=== PATIENT | male | born 1995 | race Caucasian/White ===

== ENCOUNTER 2017-09-12 19:36 | Emergency (ER) | payer SELFPAY ==
[~2017-09-12] VITALS: Ht 180.3 cm; Wt 161.5 kg
[~2017-09-12 19:36] MED LIST: ACHD5005 PO; AMOX500C2 PO; AZIT250T12; CEFU500T63 PO; HYDR-757 PO; HYDR1TAB PO; OXYC-12 PO; TRAM50TA2 PO
--- OUTSIDE RECORDS SUMMARY | 2017-09-12 19:46 | XMS REPORT | Continuity of Care Document ---
Author Author [facility] [place] Address Unknown Phone Unavailable Allergies Active Description Code Type Severity Reaction Onset Reported/Identified Relationship to Patient Clinical Status Yes clarithromycin [id number] Drug Allergy Mild N/A 01/20/2009 Yes Biaxin Drug Allergy 04/26/2011 Yes Biaxin Drug Allergy N/A N/A 04/26/2011 Medications There is no data. Problems Date Dx Coded Attending Type Code Diagnosis Diagnosed By 04/11/2011 BRIDGER DANIEL DO V03.89 MENINGOCOCCAL DX 04/11/2011 BRIDGER DANIEL DO V06.1 TDAP DX 04/11/2011 V03.89 MENINGOCOCCAL DX 04/11/2011 V06.1 TDAP DX 04/11/2011 V03.89 MENINGOCOCCAL DX 04/11/2011 V06.1 TDAP DX 04/26/2011 BRIDGER DANIEL DO V70.3 SPORTS/SCHOOL EXAM 04/26/2011 V70.3 SPORTS/SCHOOL EXAM 04/26/2011 V70.3 SPORTS/SCHOOL EXAM 09/02/2012 Ot 823.00 FX UPPER END TIBIA-CLOSE 09/02/2012 Ot 959.7 LOWER LEG INJURY NOS 09/02/2012 Ot E000.8 OTHER EXTERNAL CAUSE STATUS 09/02/2012 Ot E007.5 ACTIVITIES INVOLVING SOCCER 09/02/2012 Ot E849.4 ACCID IN RECREATION AREA 09/02/2012 Ot E886.0 FALL IN SPORTS 11/06/2012 BRIDGER DANIEL DO 780.2 SYNCOPE 11/06/2012 BRIDGER DANIEL DO 780.4 DIZZINESS AND VERTIGO 11/06/2012 780.2 Syncope 11/06/2012 780.4 Dizziness And Vertigo 11/06/2012 780.2 Syncope 11/06/2012 780.4 Dizziness And Vertigo 02/03/2013 V20.2 WELL CHILD 12/26/2013 LATONYA MARAVILLA MD Ot 462 ACUTE PHARYNGITIS 12/26/2013 TAIWO MD, LATONYA A Ot 784.2 SWELLING IN HEAD NECK 05/19/2014 GRGEORIO JAIN DO Ot 540.9 ACUTE APPENDICITIS NOS 05/19/2014 GREGORIO JAIN DO Ot V74.8 SCREEN-BACTERIAL DIS NEC 03/02/2016 ANGY BERMUDEZ Ot S60.031A CONTUSION OF RIGHT MIDDLE FINGER W/O DAM 03/02/2016 ANGY BERMUDEZ Ot W22.8XXA STRIKING AGAINST OR STRUCK BY OTHER OBJE 03/02/2016 ANGY BERMUDEZ Ot Y92.[address] 03/02/2016 ANGY BERMUDEZ Ot Y99.0 CIVILIAN ACTIVITY DONE FOR INCOME OR PAY 03/03/2016 ANGY BERMUDEZ Ot S60.031A CONTUSION OF RIGHT MIDDLE FINGER W/O DAM 03/03/2016 ANGY BERMUDEZ Ot W22.8XXA STRIKING AGAINST OR STRUCK BY OTHER OBJE 03/03/2016 ANGY BERMUDEZ Ot Y92.[address] 03/03/2016 ANGY BERMUDEZ Ot Y99.0 CIVILIAN ACTIVITY DONE FOR INCOME OR PAY 04/07/2016 ANGY BERMUDEZ Ot S60.031A CONTUSION OF RIGHT MIDDLE FINGER W/O DAM 04/07/2016 ANGY BERMUDEZ Ot W22.8XXA STRIKING AGAINST OR STRUCK BY OTHER OBJE 04/07/2016 ANGY BERMUDEZ Ot Y92.[address] 04/07/2016 ANGY BERMUDEZ Ot Y99.0 CIVILIAN ACTIVITY DONE FOR INCOME OR PAY 07/04/2017 DAYTON LANDON APRN Ot J40 BRONCHITIS, NOT SPECIFIED ACUTE OR CH 07/04/2017 DAYTON LANDON APRN Ot R07.89 OTHER CHEST PAIN 07/04/2017 DAYTON LANDON APRN Ot Z90.49 ACQUIRED ABSENCE OF OTHER SPECIFIED PART 07/11/2017 DAYTON LANDON APRN Ot J40 BRONCHITIS, NOT SPECIFIED ACUTE OR CH 07/11/2017 DAYTON LANDON APRN Ot R07.89 OTHER CHEST PAIN 07/11/2017 DAYTON LANDON APRN Ot Z90.49 ACQUIRED ABSENCE OF OTHER SPECIFIED PART Procedures Code Description [place] [address] ROUTINE VENIPUNCTURE 11/06/2012 87324 CMP 11/06/2012 98929 CBC 11/06/2012 78885 TSH 11/06/2012 83161 MONO TEST (RML) 11/06/2012 78110 EKG, TRACING (IN-HOUSE) 11/06/2012 57228 Screening Test Of Visual Acuity, Quantitative, Bilateral 02/05/2013 Results Test Result Range Complete blood count (CBC) with automated white blood cell (WBC) differential - 07/04/17 19:30 Blood leukocytes automated count (number/volume) 13.4 10*3/uL 4.3-11.0 Blood erythrocytes automated count (number/volume) 5.83 10*6/uL 4.35-5.85 Venous blood hemoglobin measurement (mass/volume) 16.1 g/dL 13.3-17.7 Blood hematocrit (volume fraction) 47 % 40-54 Automated erythrocyte mean corpuscular volume 81 [foz_us] 80-99 Automated erythrocyte mean corpuscular hemoglobin (mass per erythrocyte) 28 pg 25-34 Automated erythrocyte mean corpuscular hemoglobin concentration measurement ( mass/volume) 34 g/dL 32-36 Automated erythrocyte distribution width ratio 12.6 % 10.0-14.5 Automated blood platelet count (count/volume) 420 10*3/uL 130-400 Automated blood platelet mean volume measurement 10.0 [foz_us] 7.4-10.4 Automated blood neutrophils/100 leukocytes 66 % 42-75 Automated blood lymphocytes/100 leukocytes 26 % 12-44 Blood monocytes/100 leukocytes 5 % 0-12 Automated blood eosinophils/100 leukocytes 2 % 0-10 Automated blood basophils/100 leukocytes 1 % 0-10 Blood neutrophils automated count (number/volume) 8.9 10*3 1.8-7.8 Blood lymphocytes automated count (number/volume) 3.5 10*3 1.0-4.0 Blood monocytes automated count (number/volume) 0.7 10*3 0.0-1.0 Automated eosinophil count 0.3 10*3/uL 0.0-0.3 Automated blood basophil count (count/volume) 0.1 10*3/uL 0.0-0.1 Encounters ACCT No. Visit Date/Time Discharge Status Pt. Type Provider Facility Loc./Unit Complaint [id number] 11/15/2012 11:10:00 11/15/2012 23:59:59 CLS Outpatient [id number] 11/06/2012 14:29:00 11/06/2012 23:59:59 CLS Outpatient BRIDGER DANIEL DO [id number] 02/03/2013 15:49:00 Document Registration [id number] 07/04/2017 19:47:00 07/04/2017 20:50:00 DIS Outpatient DAYTON LANDON APRN [facility] ER FLANK PAIN [id number] 03/02/2016 19:14:00 03/02/2016 20:51:00 DIS Outpatient ANGY BERMUDEZ [facility] ER RT MIDDLE FINGER INJ [id number] 05/18/2014 11:35:00 05/19/2014 17:30:00 DIS Outpatient GREGORIO JAIN DO [facility] SDC APPENDICITIS [id number] 12/26/2013 22:19:00 12/26/2013 22:40:00 DIS Emergency LATONYA MARAVILLA MD [facility] ER THROAT SWELLING [id number] 09/02/2012 14:41:00 Document Registration
--- NOTE | 2017-09-12 21:13 | ED Cough/URI ---
General Chief Complaint: Cough/Cold/Flu Symptoms Stated Complaint: ABD PAIN;EAR PAIN;FEVER Nursing Triage Note: PT PRESENTS TO ED WITH COMPLAINT OF ABD, NAUSEA, FEVER, AND EAR PAIN (TRAVIS FRANCIS MEDICAL STUDENT) History of Present Illness Time seen by provider: 21:13 Initial Comments Pt is a 21 yo male who presents to the ED via PV c/o abd pain, nausea, and subjective fever onset this morning. Pt states that he had been sick with bronchitis for ~ 2 weeks and still has the cough, but this morning had a sudden onset of abd pain, nausea, diarrhea, and subjective fevers. Pt hasn't taken anything for pain/fever reduction but states that his brother was recently sick with similar sx. Pt also reports L ear pain for 2 days and that he has a chronic ear wax issue. Denies sore throat, SOB, or having any other associated sx. (TRAVIS FRANCIS MEDICAL STUDENT) Allergies and Home Medications Allergies Coded Allergies: clarithromycin (Unverified Allergy, Mild, 01/20/09) Home Medications Azithromycin 250 Mg Tablet, (Reported) Cefuroxime Axetil 500 Mg Tablet, 500 MG PO BID, #14 Prescribed by: DAYTON LANDON on 07/04/172036 Hydrocodone/Acetaminophen 1 Each Tablet, 1 EACH PO Q4H PRN for PAIN-SEVERE, #20 Prescribed by: DAYTON LANDON on 07/04/172036 Constitutional: chills, fever EENTM: ear pain (L), No mouth pain, No throat pain Respiratory: cough, phlegm, No short of breath, No wheezing Cardiovascular: no symptoms reported, No chest pain, No palpitations Gastrointestinal: abdominal pain, diarrhea, nausea, No vomiting Skin: no symptoms reported, No change in color, No rash ([employer] FRANC[employer] MEDICAL STUDENT) All Other Systems Reviewed Negative Unless Noted: Yes (Negative excepted noted.) (TRAVIS FRANCIS MEDICAL STUDENT) Past Gqnbtab-Ftnmme-Nsisnf Hx Patient Social History Alcohol Use: Occasionally Uses Recreational Drug Use: No Smoking Status: Never a Smoker 2nd Hand Smoke Exposure: No Recent Foreign Travel: No Contact w/Someone Who Travel: No Recent Infectious Disease Expo: No Recent Hopitalizations: No (TR[employer] FRANCIS MEDICAL STUDENT) Immunizations Up To Date Tetanus Booster (TDap): Less than 5yrs (TRAVIS FRANCIS MEDICAL STUDENT) Seasonal Allergies Seasonal Allergies: Yes ([employer] FRANCIS MEDICAL STUDENT) Surgeries History of Surgeries: Yes (Left knee arthroscopy) Surgeries: Appendectomy (TRAV[employer] FRANCIS MEDICAL STUDENT) Respiratory History of Respiratory Disorde: No ([employer] FRANCIS MEDICAL STUDENT) Cardiovascular History of Cardiac Disorders: No ([employer] FRANC[employer] MEDICAL STUDENT) Neurological History of Neurological Disord: No (TR[employer] FRANCIS MEDICAL STUDENT) Reproductive System Hx Reproductive Disorders: No (TR[employer] FRANCIS MEDICAL STUDENT) Genitourinary History of Genitourinary Disor: No ([employer]ANC[employer] MEDICAL STUDENT) Gastrointestinal History of Gastrointestinal Di: No ([employer] FRANCIS MEDICAL STUDENT) Musculoskeletal History of Musculoskeletal Dis: No ([employer]ANC[employer] MEDICAL STUDENT) Endocrine History of Endocrine Disorders: No ([employer]ANC[employer] MEDICAL STUDENT) HEENT History of HEENT Disorders: No (TR[employer] FRANCIS MEDICAL STUDENT) Cancer History of Cancer: No (TR[employer] FRANCIS MEDICAL STUDENT) Psychosocial History of Psychiatric Problem: No ([employer] FRANCIS MEDICAL STUDENT) Integumentary History of Skin or Integumenta: No ([employer] FRANCIS MEDICAL STUDENT) Blood Transfusions History of Blood Disorders: No ([employer]ANCIS MEDICAL STUDENT) Family Medical History Significant Family History: No Pertinent Family Hx (TRAV[employer] FRANCIS MEDICAL STUDENT) Physical Exam Vital Signs Vital Sign - Last 12Hours 09/12/17 19:50 Temp 98.2 Pulse 100 Resp 20 B/P (MAP) 127/83 (98) Pulse Ox 97 O2 Delivery Room Air (MACIE VAZQUEZ MD) Vital Signs Capillary Refill : Less Than 3 Seconds ([employer] MEDICAL STUDENT) General Appearance: obese, other (appears ill) HEENT: pharynx normal, No pale conjunctivae (R), No pale conjunctivae (L), No pharyngeal erythema, No tonsillar exudate, other (TM's obscured by wax bilat) Neck: non-tender, full range of motion, supple Respiratory: lungs clear, normal breath sounds, no respiratory distress Cardiovascular: normal peripheral pulses, no murmur, tachycardia Gastrointestinal: normal bowel sounds, non tender, soft, No guarding, No rebound Extremities: non-tender, normal inspection, no pedal edema Neurologic/Psychiatric: alert, normal mood/affect, oriented x 3 Skin: normal color, damp ([employer] FRANCIS MEDICAL STUDENT) Progress/Results/Core Measures Suspected Sepsis Recent Fever Within 48 Hours: No Infection Criteria Present: None New/Unexplained Altered Menta: No Sepsis Screen: No Definite Risk Sepsis Diagnosis: SIRS Temperature:98.2 Pulse: 100 Respiratory Rate: 20 Blood Pressure 127 /83 Mean: 98 (TRAV[employer] FRANCIS MEDICAL STUDENT) Results/Orders Micro Results Microbiology 09/12/17 Influenza Types A,B Antigen ([place]) - Final, Complete (MACIE VAZQUEZ MD) My Orders Orders - MACIE VAZQUEZ MD Influenza A And B Antigens (09/12/17 20:53) Ondansetron Oral Dissolve Tab (Zofran (09/12/17 21:30) Rx-Ondansetron Po (Rx-Zofran Po) (09/12/17 21:59) (MACIE VAZQUEZ MD) Medications Given in ED Current Medications Medications Dose Ordered Sig/Rica Route Start Time Stop Time Status Last Admin Dose Admin Ondansetron HCl 8 mg ONCE ONCE SL 09/12/17 21:30 09/12/17 21:31 DC 09/12/17 21:28 8 MG (MACIE VAZQUEZ MD) Vital Signs/I&O Vital Sign - Last 12Hours 09/12/17 19:50 Temp 98.2 Pulse 100 Resp 20 B/P (MAP) 127/83 (98) Pulse Ox 97 O2 Delivery Room Air (MACIE VAZQUEZ MD) Vital Signs/I&O Capillary Refill : Less Than 3 Seconds ([employer]ANC[employer] MEDICAL STUDENT) Blood Pressure Mean: 98 Departure Impression Impression: Primary Impression: Flu-like symptoms Additional Impressions: Nausea Diarrhea Qualified Codes: R19.7 - Diarrhea, unspecified Disposition: HOME, SELF-CARE Condition: Improved Departure-Patient Inst. Decision time for Depature: 22:01 (MACIE VAZQUEZ MD) Referrals: [facility] (PCP/Family) Primary Care Physician Patient Instructions: Diarrhea in Adolescents and Adults Add. Discharge Instructions: Drink plenty of clear liquids. Gradually advance her diet with small quantities of bland food as tolerated. Avoid dairy products until diarrhea has resolved for at least 24 hours. Dissolve the Zofran (ondansetron) under your tongue every 4 hours as needed for nausea and vomiting. Return to care if symptoms worsen. You may take Tylenol and/or ibuprofen for pain or fever. All discharge instructions reviewed with patient and/or family. Voiced understanding. TRAVIS FRANCIS MEDICAL STUDENT Sep 12, 2017 9:13 pm MACIE VAZQUEZ MD Sep 12, 2017 10:02 pm
[2017-09-12] MEDS ORDERED: ONDANSETRON 4 MG (ZOFRAN) ORAL DISSOLVE TAB SL ONE (21:30)
[2017-09-12] MEDS ORDERED: RX-ONDANSETRON 4 MG ODT (ZOFRAN) PPK #4 SL STA (21:59)
[2017-09-12 22:10] VITALS: BP 128/88
== END 2017-09-12 22:10 | disposition home or self-care (01) ==
LOC: EDUNIT# 19:36 → ER 19:37
DX: J11.1 Influenza due to unidentified influenza virus with other respiratory manifestations (principal); R19.7 Diarrhea, unspecified; Z90.49 Acquired absence of other specified parts of digestive tract
CPT/HCPCS: 87804; 99283